=== PATIENT | female | born 1965 | race Caucasian/White ===

== ENCOUNTER 2020-05-28 11:33 | Inpatient (IN) | payer OTHER, MEDICAID ==
[~2020-05-28] VITALS: Ht 162.6 cm; Wt 89.0 kg
[2020-05-28] MEDS ORDERED: METHOCARBAMOL 500 MG TAB PO ONE (14:15)
[2020-05-28] MEDS ORDERED: KETOROLAC TROMETH 60MG/2ML VIAL IM ONE (14:15)
[2020-05-28] MEDS ORDERED: HYDROcodone-ACET 5/325MG TAB PO ONE (16:00)
[2020-05-28 16:34] LABS: Urine Bacteria FEW /hpf (None Seen); Urine Blood 2+ /uL (Negative); Urine Mucus FEW (None Seen); Urine Specific Gravity 1.015 (1.001-1.035); Urine WBC 1577 /hpf (0 - 5); Urine WBC Clumps PRESENT /hpf (None Seen)
[2020-05-28] MEDS ORDERED: cefTRIAXone 1GM/50ML D5W 50 ML IV ONE (17:00)
[2020-05-28] MEDS ORDERED: SODIUM CHLORIDE 0.9% 1,000 ML IV SCH (17:37)
[2020-05-28 17:40] LABS: Basophils # (auto) 0.1 10 ^3/uL (0-0.2); Basophils % (auto) 0.9 % (0.0-2.0); Eosinophils # (auto) 0.2 10 ^3/uL (0-0.8); Eosinophils % (auto) 3.2 % (0.0-7.0); Hematocrit 51.4 % (36.0-46.0); Lymphocytes # (auto) 1.9 10 ^3/uL (0.4-5.4); Lymphocytes % (auto) 25.4 % (10.0-50.0); Mean Corpuscular Hemoglobin 29.5 pg (28.0-32.0); Mean Corpuscular Volume 89.4 fL (80.0-100.0); Monocytes # (auto) 0.6 10 ^3/uL (0-1.3); Monocytes % (auto) 7.9 % (0.0-12.0); Neutrophils # (auto) 4.6 10 ^3/uL (1.6-8.6); Neutrophils % (auto) 62.6 % (37.0-80.0); Platelet Count (auto) 338 10^3/uL (140-450); Red Blood Cells 5.75 10^6/uL (4.0-5.20); White Blood Cell 7.3 10^3/uL (4.4-10.8)
[2020-05-28] MEDS ORDERED: MEROPENEM 500MG IVPB 50 ML IV ONE (17:45)
[2020-05-28] MEDS ORDERED: ALUM & MAG HYDROX-SIMETH LIQ(MAALOX) 30 ML PO PRN (17:45)
[2020-05-28] MEDS ORDERED: HYDROcodone-ACET 5/325MG TAB PO PRN (17:45)
[2020-05-28] MEDS ORDERED: NITROGLYCERIN 0.4 MG SL TAB SL PRN ×2 (17:45)
[2020-05-28] MEDS ORDERED: MORPHINE SULF INJ 2 MG/ML SYRINGE 1ML IV PRN ×2 (17:45)
[2020-05-28] MEDS ORDERED: VANCOMYCIN PER PHARMACY 0 MG IV SCH (17:45)
[2020-05-28] MEDS ORDERED: ACETAMINOPHEN 325 MG TAB PO PRN (17:45)
[2020-05-28] MEDS ORDERED: DOCUSATE SOD 100 MG CAP PO PRN (17:45)
[2020-05-28 17:56] LABS: Albumin 3.2 g/dL (3.4-5.0); Calcium 8.6 mg/dL (8.5-10.1); Potassium 3.4 mmol/L (3.5-5.1)
[2020-05-28 18:02] LABS: BUN/Creatinine Ratio 15.1; Bilirubin, Total 1.2 mg/dL (0.2-1.0); Total Protein 8.2 g/dL (6.4-8.2)
[2020-05-28 18:25] LABS: Cholesterol 175 mg/dL (< 200); HDL Cholesterol 37 mg/dL (40-59); LDL Cholesterol 120 mg/dL (< 100); Triglycerides 211 mg/dL (< 150)
[2020-05-28 18:36] LABS: Alcohol, Urine < 3.0 mg/dL (0-10); Amphetamine Screen, Urine POSITIVE (NEGATIVE); Barbiturate Scree,Urine NEGATIVE (NEGATIVE); Benzodiazephine Screen, Urine NEGATIVE (NEGATIVE); Cannabinoid Screen, Urine POSITIVE (NEGATIVE); Cocaine Screen, Urine NEGATIVE (NEGATIVE); Phencyclidine Screen, Urine NEGATIVE (NEGATIVE)
[2020-05-28 18:43] LABS: Opiate Scree,Urine NEGATIVE (NEGATIVE)
[2020-05-28] MEDS ORDERED: DICL-176 PO ×2 (18:43→18:51)
[2020-05-28] MEDS ORDERED: PANT40T PO (18:43)
[2020-05-28] MEDS ORDERED: ALBUAER3 IN (18:43)
[2020-05-28] MEDS ORDERED: IPR002IS IN (18:43)
[2020-05-28] MEDS ORDERED: TRAM50TA2 PO (18:44)
[2020-05-28] MEDS ORDERED: PHEN37.577 PO (18:45)
[2020-05-28] MEDS ORDERED: HYDR-531 PO (18:46)
[2020-05-28] MEDS: ENOXAPARIN SOD 40 MG/0.4 ML SYRINGE SC SCH (20:56)
[2020-05-28] MEDS: MEROPENEM 1GM IVPB 100 ML IV SCH (20:56)
[2020-05-28] MEDS: MORPHINE SULF INJ 2 MG/ML SYRINGE 1ML IV PRN (20:57)
[2020-05-28] MEDS: ONDANSETRON HCL 4 MG/2 ML VIAL IV PRN (20:57)
[2020-05-28] MEDS ORDERED: VANCOMYCIN 1GM/250ML 250 ML IV ONE (21:00)
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
[2020-05-28] MEDS ORDERED: LACTATED RINGER'S 1,000 ML IV ONE (22:00)
[2020-05-28] MEDS: SOD CHL 0.9%/ KCL 20MEQ 1,000 ML IV SCH (22:10)
[2020-05-28] MEDS: ATORVASTATIN 20 MG TAB PO SCH (22:41)
[2020-05-28 22:54] VITALS: BP 139/96
[2020-05-29] MEDS: MORPHINE SULF INJ 2 MG/ML SYRINGE 1ML IV PRN ×5 (05:00→23:59)
[2020-05-29] MEDS: MEROPENEM 1GM IVPB 100 ML IV SCH (05:01)
[2020-05-29 05:41] VITALS: BP 155/102
[2020-05-29 05:48] VITALS: BP 153/95
[2020-05-29 09:00] VITALS: BP 154/95
[2020-05-29 09:32] LABS: Basophils # (auto) 0.1 10 ^3/uL (0-0.2); Basophils % (auto) 0.9 % (0.0-2.0); Eosinophils # (auto) 0.2 10 ^3/uL (0-0.8); Eosinophils % (auto) 2.9 % (0.0-7.0); Hematocrit 49.2 % (36.0-46.0); Hemoglobin 16.4 g/dL (12.2-16.2); Lymphocytes # (auto) 1.5 10 ^3/uL (0.4-5.4); Lymphocytes % (auto) 20.6 % (10.0-50.0); Mean Corpuscular Hemoglobin 29.7 pg (28.0-32.0); Mean Corpuscular Hgb Conc. 33.3 g/dL (32.0-36.0); Mean Corpuscular Volume 89.2 fL (80.0-100.0); Monocytes # (auto) 0.5 10 ^3/uL (0-1.3); Monocytes % (auto) 7.6 % (0.0-12.0); Neutrophils # (auto) 4.9 10 ^3/uL (1.6-8.6); Nucleated Red Blood Cells % 0.2 %; Platelet Count (auto) 293 10^3/uL (140-450); Red Blood Cells 5.52 10^6/uL (4.0-5.20); Red Cell Distribution Width 14.8 % (11.8-14.3); White Blood Cell 7.2 10^3/uL (4.4-10.8)
[2020-05-29 09:51] LABS: Potassium 3.8 mmol/L (3.5-5.1)
[2020-05-29 09:58] LABS: Albumin 2.9 g/dL (3.4-5.0); BUN/Creatinine Ratio 18.3; Bilirubin, Total 0.8 mg/dL (0.2-1.0); Calcium 8.3 mg/dL (8.5-10.1); Magnesium 2.4 mg/dL (1.6-2.6); Phosphorus 3.6 mg/dL (2.5-4.90); Total Protein 7.5 g/dL (6.4-8.2)
[2020-05-29 10:24] LABS: INR 0.97 (0.9-1.15); Partial Thromboplastin Time 29.3 sec (23.64-32.05)
[2020-05-29] MEDS ORDERED: cefTRIAXone 1GM/50ML D5W 50 ML IV ONE (10:30)
--- NOTE | 2020-05-29 12:45 | NUR ---
Hospitalist Rounded Dr. Thompson at bedside with patient.
[2020-05-29 13:00] VITALS: BP 150/77
--- NOTE | 2020-05-29 14:30 | NUR ---
Patient off unit Patient signed AMA form and off unit to go smoke and give daughter personal belongings. Form in chart updated.
[2020-05-29] MEDS: SOD CHL 0.9%/ KCL 20MEQ 1,000 ML IV SCH ×2 (15:59→17:42)
[2020-05-29 17:00] VITALS: BP 144/95
--- NOTE | 2020-05-29 17:20 | NUR ---
Pain Patient requested pain medication previously. However, patient is asleep at this time. Will continue to monitor and administer medication once awake.
[2020-05-29] MEDS: ENOXAPARIN SOD 40 MG/0.4 ML SYRINGE SC SCH (18:26)
[2020-05-29 22:00] VITALS: BP 156/99
[2020-05-29] MEDS: ATORVASTATIN 20 MG TAB PO SCH (22:00)
--- NOTE | 2020-05-29 23:59 | NUR ---
Pain Patient c/o 07/25 generalized body pain. Administered 2 mg Morphine per EMAR. Will continue to monitor.
--- NOTE | 2020-05-30 00:30 | NUR ---
Pain reassessed Patient resting with breathing even and non-labored and no s/s of distress. Will continue to monitor.
--- NOTE | 2020-05-30 00:30 | NUR ---
PATIENT WOUND TO LEFT UPPER POSTERIOR ARM Removed gauze dressing with wound cleanser. Noted minimal light brown drainage on gauze, wound 2.5 cm x 5 cm. Cleansed wound with wound cleanser, patted dry with 4x4 gauze, photos taken. Applied optifoam and then covered with Medipore tape. Patient tolerated well.
--- NOTE | 2020-05-30 02:45 | NUR ---
PATIENT OFF UNIT TO SMOKE
--- NOTE | 2020-05-30 03:14 | NUR ---
Patient returned from smoking.
[2020-05-30] MEDS: SOD CHL 0.9%/ KCL 20MEQ 1,000 ML IV SCH ×2 (03:37→14:39)
[2020-05-30] MEDS: MORPHINE SULF INJ 2 MG/ML SYRINGE 1ML IV PRN ×4 (03:59→18:36)
--- NOTE | 2020-05-30 04:00 | NUR ---
Pain Patient c/o 07/25 generalized body pain. Administered 2 mg Morphine per EMAR. Will continue to monitor.
--- NOTE | 2020-05-30 04:30 | NUR ---
Patient sleeping, respirations even and non-labored with no s/s of distress. Will continue to monitor.
[2020-05-30 05:00] VITALS: BP 163/89
[2020-05-30 05:55] LABS: Basophils # (auto) 0.1 10 ^3/uL (0-0.2); Eosinophils # (auto) 0.2 10 ^3/uL (0-0.8); Eosinophils % (auto) 3.3 % (0.0-7.0); Hemoglobin 15.5 g/dL (12.2-16.2); Lymphocytes # (auto) 1.2 10 ^3/uL (0.4-5.4); Mean Corpuscular Hemoglobin 29.2 pg (28.0-32.0); Mean Corpuscular Hgb Conc. 32.2 g/dL (32.0-36.0); Mean Corpuscular Volume 90.7 fL (80.0-100.0); Monocytes # (auto) 0.6 10 ^3/uL (0-1.3); Monocytes % (auto) 8.6 % (0.0-12.0); Neutrophils # (auto) 4.4 10 ^3/uL (1.6-8.6); Neutrophils % (auto) 68.1 % (37.0-80.0); Nucleated Red Blood Cells % 0.1 %; Platelet Count (auto) 259 10^3/uL (140-450); Red Blood Cells 5.29 10^6/uL (4.0-5.20); Red Cell Distribution Width 14.9 % (11.8-14.3); White Blood Cell 6.4 10^3/uL (4.4-10.8)
[2020-05-30 06:14] LABS: Potassium 3.6 mmol/L (3.5-5.1)
[2020-05-30 06:24] LABS: Albumin 2.7 g/dL (3.4-5.0); BUN/Creatinine Ratio 16.3; Bilirubin, Total 0.7 mg/dL (0.2-1.0); Calcium 8.1 mg/dL (8.5-10.1); Total Protein 7.1 g/dL (6.4-8.2)
--- NOTE | 2020-05-30 07:50 | NUR ---
OPENING SHIFT NOTE: PATIENT AWAKE RESTING IN BED. A/OX4 RESPIRATIONS EVEN AND UNLABORED. PATIENT DENIES ANY PAIN AT THIS TIME. UPDATED ON PLAN OF CARE. CALL LIGHT WITHIN REACH, FALL PRECAUTIONS IN PLACE, GUARDS AT BEDSIDE, WILL CONTINUE TO MONITOR.
[2020-05-30] MEDS: cefTRIAXone 1GM/50ML D5W 50 ML IV SCH (08:26)
[2020-05-30] MEDS: ONDANSETRON HCL 4 MG/2 ML VIAL IV PRN (08:26)
[2020-05-30] MEDS: LORazepam 0.5 MG TAB PO PRN ×2 (08:26→16:24)
--- NOTE | 2020-05-30 08:51 | NUR ---
PATIENT RECEIVED FOOD FROM FAMILY.
[2020-05-30 09:00] VITALS: BP 154/83
[2020-05-30] MEDS ORDERED: BACLOFEN 10 MG TAB PO PRN (10:00)
[2020-05-30 13:00] VITALS: BP 153/80
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
--- NOTE | 2020-05-30 14:00 | NUR ---
SPOTTER AT BEDSIDE.
--- NOTE | 2020-05-30 14:11 | NUR ---
WOUND CULTURE SENT TO LAB.
--- NOTE | 2020-05-30 16:21 | NUR ---
MD CHANTEL GIPSON.
[2020-05-30 17:00] VITALS: BP 122/93
[2020-05-30] MEDS: ENOXAPARIN SOD 40 MG/0.4 ML SYRINGE SC SCH (18:35)
--- NOTE | 2020-05-30 20:00 | NUR ---
ASSUMED CARE, PT. JUST CAME BACK DOWNSTAIRS TO SMOKE, NO C/O PAIN, NO SOB.
[2020-05-30] MEDS: ATORVASTATIN 20 MG TAB PO SCH (21:00)
--- NOTE | 2020-05-30 21:00 | NUR ---
PATIENT REQUESTED TO REMOVED PASSWORD.
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
[2020-05-30 22:28] VITALS: BP 137/98
[2020-05-31] MEDS: SOD CHL 0.9%/ KCL 20MEQ 1,000 ML IV SCH ×2 (00:03→05:06)
[2020-05-31 05:22] LABS: Basophils # (auto) 0.1 10 ^3/uL (0-0.2); Basophils % (auto) 0.9 % (0.0-2.0); Eosinophils # (auto) 0.2 10 ^3/uL (0-0.8); Eosinophils % (auto) 3.4 % (0.0-7.0); Hematocrit 49.8 % (36.0-46.0); Hemoglobin 16.4 g/dL (12.2-16.2); Lymphocytes # (auto) 1.3 10 ^3/uL (0.4-5.4); Lymphocytes % (auto) 20.3 % (10.0-50.0); Mean Corpuscular Hemoglobin 29.8 pg (28.0-32.0); Mean Corpuscular Hgb Conc. 32.9 g/dL (32.0-36.0); Mean Corpuscular Volume 90.7 fL (80.0-100.0); Monocytes # (auto) 0.5 10 ^3/uL (0-1.3); Monocytes % (auto) 7.2 % (0.0-12.0); Neutrophils # (auto) 4.3 10 ^3/uL (1.6-8.6); Neutrophils % (auto) 68.2 % (37.0-80.0); Nucleated Red Blood Cells % 0.1 %; Platelet Count (auto) 276 10^3/uL (140-450); Red Cell Distribution Width 15.1 % (11.8-14.3); White Blood Cell 6.3 10^3/uL (4.4-10.8)
[2020-05-31 05:39] VITALS: BP 154/98
[2020-05-31 05:44] LABS: Albumin 2.8 g/dL (3.4-5.0); Calcium 8.6 mg/dL (8.5-10.1); Potassium 4.3 mmol/L (3.5-5.1)
[2020-05-31] MEDS: MORPHINE SULF INJ 2 MG/ML SYRINGE 1ML IV PRN (05:45)
[2020-05-31 05:47] LABS: BUN/Creatinine Ratio 15.1; Bilirubin, Total 0.8 mg/dL (0.2-1.0); Total Protein 7.3 g/dL (6.4-8.2)
--- NOTE | 2020-05-31 08:10 | NUR ---
Dr. Thompson at bedside. explained to patient she has to follow up w/ her doctor at [place], no driving yet until cleared by doctor. Patient for discharge home today.
--- NOTE | 2020-05-31 08:30 | NUR ---
Patient wants to smoke off unit. Patient refused Rocephin IV.
[2020-05-31] MEDS: cefTRIAXone 1GM/50ML D5W 50 ML IV SCH (09:00)
--- NOTE | 2020-05-31 11:45 | NUR ---
Discharge instructions given as ordered. Encourage to follow up with PMD as instructed. All questions and concerns addressed. Patient verbalized understanding. Medication reconciliation form completed and copy given to patient. IV removed with catheter intact, pressure dressing applied. Patient taken to vehicle via wheelchair with all personal belongings, accompanied by staff. No distress noted at time of departure.
== END 2020-05-31 11:45 | disposition home or self-care (01) | DRG 690 ==
LOC: ER 11:33 → OVERFLOW 11:34 → CENTRAL 20:20
PROVIDERS: ADMIT Hospitalist; ATTEND Internal Medicine
DX: N13.6 Pyonephrosis (principal); E44.0 Moderate protein-calorie malnutrition; E11.9 Type 2 diabetes mellitus without complications; E66.9 Obesity, unspecified; E87.6 Hypokalemia; G89.29 Other chronic pain; N18.3 Chronic kidney disease, stage 3 (moderate); M19.90 Unspecified osteoarthritis, unspecified site; F15.10 Other stimulant abuse, uncomplicated; F12.10 Cannabis abuse, uncomplicated; Z87.442 Personal history of urinary calculi; Z87.440 Personal history of urinary (tract) infections; Z68.37 Body mass index [BMI] 37.0-37.9, adult; Z91.013 Allergy to seafood; N17.9 Acute kidney failure, unspecified; V89.2XXA Person injured in unspecified motor-vehicle accident, traffic, initial encounter; Y92.410 Unspecified street and highway as the place of occurrence of the external cause
CPT/HCPCS: 36415; 72040; 72070; 74176; 80053; 80061; 80307; 81001; 83036; 83735; 84100; 84484; 85025; 85610; 85730; 87040; 87086; 87088; 87186; 87205; 96365; 96367; 96372; 96375; G0378; J0696; J1885; J2185; J2405

== ENCOUNTER 2024-02-14 17:02 | Emergency (ER) | payer MEDICAID ==
[~2024-02-14] VITALS: Ht 162.6 cm; Wt 123.6 kg
[~2024-02-14 17:02] MED LIST: ALBUAER3 IN; DICL75TA3 PO; HYDR-531 PO; PANT40T PO; PHEN37.577 PO; TRAM50TA2 PO
[2024-02-14 17:51] VITALS: PULSE 102; RESP 14; O2SAT 96
[2024-02-14 18:03] LABS: Basophils # (auto) 0 10 ^3/uL (0-0.2); Basophils % (auto) 0.4 % (0.0-2.0); Eosinophils # (auto) 0.2 10 ^3/uL (0-0.8); Eosinophils % (auto) 1.5 % (0.0-7.0); Hematocrit 51.4 % (36.0-46.0); Hemoglobin 17.1 g/dL (12.2-16.2); Lymphocytes # (auto) 1.1 10 ^3/uL (0.4-5.4); Lymphocytes % (auto) 10.4 % (10.0-50.0); Mean Corpuscular Hemoglobin 29.8 pg (28.0-32.0); Mean Corpuscular Hgb Conc. 33.3 g/dL (32.0-36.0); Mean Corpuscular Volume 89.5 fL (80.0-100.0); Monocytes # (auto) 0.6 10 ^3/uL (0-1.3); Monocytes % (auto) 5.4 % (0.0-12.0); Neutrophils # (auto) 8.8 10 ^3/uL (1.6-8.6); Neutrophils % (auto) 82.3 % (37.0-80.0); Nucleated Red Blood Cells % 0.3 %; Red Blood Cells 5.74 10^6/uL (4.0-5.20); Red Cell Distribution Width 14.7 % (11.8-14.3); White Blood Cell 10.7 10^3/uL (4.4-10.8)
[2024-02-14 18:20] LABS: Alanine Aminotransferase 25 U/L (7-40); Albumin 4.1 g/dL (3.2-4.8); Alkaline Phosphatase 121 U/L (46-116); Anion Gap 5 (5-15); Aspartate Aminotransferase 20 U/L (13-40); BUN/Creatinine Ratio 22.8 (10.0-20.0); Blood Urea Nitrogen 37 mg/dL (9-23); Calcium 9.5 mg/dL (8.7-10.4); Carbon Dioxide 27 mmol/L (20-30); Chloride 109 mmol/L (98-107); Glucose 116 mg/dL (74-106); INR 0.97 (0.9-1.15); Magnesium 2.1 mg/dL (1.6-2.6); Partial Thromboplastin Time 29.3 SEC (24.5-34.5); Potassium 4.3 mmol/L (3.5-5.1); Prothrombin Time 10.2 sec (9.3-11.8); Sodium 141 mmol/L (136-145)
[2024-02-14 18:21] LABS: Bilirubin, Total 0.6 mg/dL (0.2-1.0); Total Protein 7.1 g/dL (5.7-8.2)
[2024-02-14] MEDS: TENECTEPLASE 50mg/10ml KIT IV ONE (18:42)
[2024-02-14 19:15] VITALS: PULSE 109; RESP 18; O2SAT 95
[2024-02-14 19:16] VITALS: BP 123/78; PULSE 109; RESP 20; TEMP 97.3; O2SAT 95
[2024-02-14] MEDS: LORazepam 2MG/ML-1ML VIAL IV ONE (19:22)
== END 2024-02-14 19:30 | disposition short-term general hospital (02) ==
LOC: ER 17:02 → EDBD 17:02 → ER 19:30
DX: R55 Syncope and collapse (principal); I63.89 Other cerebral infarction; F17.210 Nicotine dependence, cigarettes, uncomplicated; F12.10 Cannabis abuse, uncomplicated; I10 Essential (primary) hypertension; F10.10 Alcohol abuse, uncomplicated; Z87.442 Personal history of urinary calculi
CPT/HCPCS: 36415; 70450; 71045; 80053; 83735; 83880; 84443; 84484; 85025; 85610; 85730; 93005; 96374; 96375; 99285; J2060; J3101